=== PATIENT | male | born 1940 | race Hispanic/Latino ===

== ENCOUNTER 2017-12-06 05:49 | Emergency (ER) | payer MEDICARE, OTHER ==
[2017-12-06 06:07] VITALS: O2SAT 98
[2017-12-06] MEDS ORDERED: Lidocaine 1% w Epi 1:100,000 Inj ONE (06:16)
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
[2017-12-06] MEDS: Tdap Vaccine 0.5 ml Vial (10-64 yrs) IM ONE (07:27)
[2017-12-06] MEDS: ceFAZolin 1 GM in Sodium Chloride 0.9% 100 ML IVPB STA (07:28)
--- NOTE | 2017-12-06 07:35 | ED PDOC ---
- Laboratory Results Result Diagrams: 12/06/17 07:40 12/06/17 07:40 - ECG O2 Sat by Pulse Oximetry: 98 (RA) Pulse Ox Interpretation: Normal - Progress Re-evaluation Time: 11:00 Condition: Re-examined, Improved Medical Decision Making Medical Decision Making: Time: 7:00 Patient endorsed to me by Dr. Efraín Garcia at this time, pending CT and reevaluation. Time: 07:44 EXAM: CT Head Without Intravenous Contrast FINDINGS: Brain: Moderate atrophy. No intracranial hemorrhage. No mass. Minimal decreased attenuation within periventricular white matter. Probable chronic lacunar infarcts within basal ganglia. No edema. Ventricles: No hydrocephalus. Bones/joints: No calvarial fracture. Fracture anterior wall of left maxillary sinus. Fracture posterolateral wall of left maxillary sinus. Fracture floor of left orbit. Mild diastases of left zygomaticofrontal suture. Degenerative changes of RIGHT temporomandibular joint. Soft tissues: LEFT periorbital/maxillary/frontal soft tissue swelling. Several small radiopaque foreign bodies along left periorbital/frontal soft tissue swelling. Small amount of air about left maxillary sinus. Vasculature: Atherosclerotic disease of intracranial arteries. Sinuses: Scattered minimal to mild mucosal thickening. Minimal fluid within left maxillary sinus. Mastoid air cells: No mastoid effusion. Orbits: Minimal air within left orbit. IMPRESSION: 1. No intracranial hemorrhage. 2. Nonspecific white matter changes. 3. Facial fractures as above. 4. Incidental/non-acute findings are described above. 8:20 Patient complaining of nausea and pain. Will give IV Zofran and Morphine. Finger stick is elevated at 387. 9:09 Initiated IV fluids and 10 units Insulin IV. 1100 On reevaluation, patient appears improved and is feeling much better. Hyperglycemia is improved. Discussed findings w/ oromaxillofacial resident at [facility], Dr. Munoz ( working with Attending Dr. Lewis), who states patient does not require transfer for this particular injury and patient can follow up outpatient in the O[facility] clinic at [facility] tomorrow. Scribe Attestation: Documented by Sailaja Billings, acting as a scribe for Adrienne Trammell MD Provider Scribe Attestation: All medical record entries made by the Scribe were at my direction and personally dictated by me. I have reviewed the chart and agree that the record accurately reflects my personal performance of the history, physical exam, medical decision making, and the department course for this patient. I have also personally directed, reviewed, and agree with the discharge instructions and disposition. Disposition Doctor Will See Patient In The: Office Counseled Patient/Family Regarding: Studies Performed, Diagnosis, Need For Followup - Clinical Impression Clinical Impression: Hyperglycemia due to type 1 diabetes mellitus, Head injury, Orbital fracture, Laceration of face - POA Present On Arrival: Falls Or Trauma, Poor Glycemic Control - Disposition Referrals: [facility] [Outside] Disposition: Routine/Home Disposition Time: 11:32 Condition: GOOD Additional Instructions: Follow up with your oral maxillofacial clinic at [facility] tomorrow at 9 am. Follow up with your PCP in 5-7 days for suture removal. Prescriptions: Amoxicillin/Clavulanate [Augmentin 875 MG-125 MG] 1 tab PO BID #14 tab oxyCODONE/Acetaminophen [Percocet 5/325 mg Tab] 1 ea PO Q6 PRN #15 tab PRN Reason: Pain, Severe (8-10) Instructions: Laceration Repair, Skull and Facial Fractures, Closed Head Injury , Hyperglycemia, Adult (DC), Stitches
--- NOTE | 2017-12-06 07:44 | CT ---
EXAM: CT Head Without Intravenous Contrast CLINICAL HISTORY: 77 years old, male; Injury or trauma; Injury Head injury; Initial encounter; Blunt trauma (contusions or hematomas); Consciousness not specified TECHNIQUE: Axial computed tomography images of the head/brain without intravenous contrast. All CT scans at this facility use one or more dose reduction techniques, viz.: automated exposure control; ma/kV adjustment per patient size (including targeted exams where dose is matched to indication; i.e. head); or iterative reconstruction technique. Coronal and sagittal reformatted images were created and reviewed. COMPARISON: No relevant prior studies available. FINDINGS: Brain: Moderate atrophy. No intracranial hemorrhage. No mass. Minimal decreased attenuation within periventricular white matter. Probable chronic lacunar infarcts within basal ganglia. No edema. Ventricles: No hydrocephalus. Bones/joints: No calvarial fracture. Fracture anterior wall of left maxillary sinus. Fracture posterolateral wall of left maxillary sinus. Fracture floor of left orbit. Mild diastases of left zygomaticofrontal suture. Degenerative changes of RIGHT temporomandibular joint. Soft tissues: LEFT periorbital/maxillary/frontal soft tissue swelling. Several small radiopaque foreign bodies along left periorbital/frontal soft tissue swelling. Small amount of air about left maxillary sinus. Vasculature: Atherosclerotic disease of intracranial arteries. Sinuses: Scattered minimal to mild mucosal thickening. Minimal fluid within left maxillary sinus. Mastoid air cells: No mastoid effusion. Orbits: Minimal air within left orbit. IMPRESSION: 1. No intracranial hemorrhage. 2. Nonspecific white matter changes. 3. Facial fractures as above. 4. Incidental/non-acute findings are described above.
[2017-12-06] MEDS: Lidocaine/Epi 1% 1:100000 20 ML IJ ONE (07:57)
[2017-12-06 08:29] LABS: INR 1.1 (0.9-1.2); PARTIAL THROMBOPLASTIN TIME 31.1 Seconds (25.6-37.1); PROTHROMBIN TIME 11.8 Seconds (9.8-13.1)
[2017-12-06] MEDS: Morphine 4 MG/ML VIAL IVP ONE (08:29)
[2017-12-06 08:36] LABS: ALB/GLOB RATIO 1.4 (1.0-2.1); ALBUMIN 4.6 g/dL (3.5-5.0); ALT/SGPT 37 U/L (21-72); AST/SGOT 23 U/L (17-59); BLOOD UREA NITROGEN 24 mg/dl (9-20); CALCIUM 10.3 mg/dL (8.4-10.2); GFR AFRICAN-AMERICAN > 60; GFR NON-AFRICAN AMERICAN > 60
[2017-12-06 08:38] LABS: BASO # 0.1 K/uL (0.0-0.2); BASO % 0.3 % (0.0-2.0); HEMOGLOBIN 13.4 g/dL (12.0-18.0); LYMPH # 6.9 K/uL (1.0-4.3); LYMPH % 37.4 % (20.0-40.0); MEAN CELL VOLUME 85.4 fl (80.0-94.0); MEAN CORPUSCULAR HEMOGLOBIN 29.2 pg (27.0-31.0); MEAN CORPUSCULAR HGB CONC 34.2 g/dL (33.0-37.0); MEAN PLATELET VOLUME 8.8 fl (7.2-11.7); MONO # 0.6 K/uL (0.0-0.8); MONO % 3.3 % (0.0-10.0); NEUT # 10.9 K/uL (1.8-7.0); NRBC % 0.3 % (0.0-0.0); RBC 4.57 Mil/uL (4.40-5.90); WHITE BLOOD COUNT 18.5 K/uL (4.8-10.8)
[2017-12-06] MEDS: Sodium Chloride 0.9% 1,000 ML IV STA (09:15)
[2017-12-06] MEDS: Insulin Regular 100 units/ml IV STA (09:24)
[2017-12-06 09:26] VITALS: RESP 20
[2017-12-06 12:35] VITALS: BP 90/60; PULSE 100; TEMP 98.3
--- NOTE | 2017-12-07 07:34 | CARD ---
APPROVED REPORT EKG Measurement Heart [id number] <Conclusion> Sinus rhythm with 1st degree AV block Left axis deviation Right bundle branch block Inferior infarct, age undetermined Abnormal ECG
== END 2017-12-06 12:37 | disposition home or self-care (01) ==
LOC: H.ER 05:49
DX: S09.90XA Unspecified injury of head, initial encounter (principal); S02.19XA Other fracture of base of skull, initial encounter for closed fracture; W01.10XA Fall on same level from slipping, tripping and stumbling with subsequent striking against unspecified object, initial encounter; Y99.0 Civilian activity done for income or pay; E11.65 Type 2 diabetes mellitus with hyperglycemia; S01.81XA Laceration without foreign body of other part of head, initial encounter; I10 Essential (primary) hypertension; E05.90 Thyrotoxicosis, unspecified without thyrotoxic crisis or storm; Z79.4 Long term (current) use of insulin; Z79.82 Long term (current) use of aspirin; Z23 Encounter for immunization
CPT/HCPCS: 12013; 70450; 80053; 82948; 85025; 85610; 85730; 90471; 90715; 93005; 96361; 96365; 96375; 99285; J0690; J2270; J2405; J7040

== ENCOUNTER 2017-12-14 07:48 | Emergency (ER) | payer MEDICARE, OTHER ==
[2017-12-14 07:56] VITALS: BMI 27.4
[2017-12-14 07:58] VITALS: BP 172/78
[2017-12-14 08:10] VITALS: PULSE 76; RESP 20; TEMP 98; O2SAT 98
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
== END 2017-12-14 10:20 | disposition home or self-care (01) ==
LOC: H.ER 07:48
DX: Z48.02 Encounter for removal of sutures (principal)

== ENCOUNTER 2018-06-15 08:03 | Emergency (ER) | payer MEDICARE, OTHER ==
[2018-06-15 08:03] VITALS: BMI 27.4
[2018-06-15 08:19] VITALS: BP 117/76; PULSE 111; RESP 20; TEMP 98.1; O2SAT 95
--- NOTE | 2018-06-15 09:13 | ED PDOC ---
History of Present Illness History of Present Illness: 78 years old male with history of hypertension and diabetes presents to ER for evaluation of ongoing cough associated with exertional dyspnea for 2-3 weeks. Patient reports he was recently seen at [facility] starting on Augmentin and day 2 of antibiotics but cough is persisting. He states he is on insulin but not on ASI. Patient denies edema, chest pain, fever or any asthmatic history. PMD: Carlotta Patton I HPI: Influenza Time Seen by Provider: 06/15/18 08:16 Chief Complaint: Cough, Cold, Congestion Chief Complaint (Provider): Cough, Cold, Congestion History Per: Patient Exam Limitations: no limitations Onset/Duration Of Symptoms: Other (2-3 weeks) Symptoms include: cough. denies: fever Past Medical History Reviewed: Historical Data, Nursing Documentation, Vital Signs Vital Signs: Last Vital Signs Temp 98.1 F 06/15/18 08:09 Pulse 111 H 06/15/18 08:09 Resp 20 06/15/18 08:09 BP 117/76 06/15/18 08:09 Pulse Ox 95 06/15/18 08:09 - Medical History PMH: Diabetes, HTN, Hypercholesterolemia, Hyperthyroidism Denies: Chronic Kidney Disease - Surgical History Surgical History: No Surg Hx - Family History Family History: States: Unknown Family Hx - Social History Current smoker - smoking cessation education provided: No Alcohol: None Drugs: Denies - Immunization History Hx Tetanus Toxoid Vaccination: No Hx Influenza Vaccination: No Hx Pneumococcal Vaccination: No - Home Medications Home Medications: Ambulatory Orders Medication Instructions Recorded Amlodipine Besylate/Benazepril 1 cap PO TID 11/29/13 [Amlodipine Besylate and Benazepril Hydrochlor] Aspirin [Aspir-Low] 81 mg PO DAILY 11/29/13 GlipiZIDE [Glipizide] 5 mg PO TID 11/29/13 Hydralazine Hydrochloride 50 mg PO BID 11/29/13 [Hydralazine] Insulin Detemir [Levemir] 60 unit SC DAILY 11/29/13 RX: Amlodipine Besylate 10 mg PO DAILY 11/29/13 RX: Fenofibrate 160 mg PO DAILY 11/29/13 RX: Losartan Potassium 100 mg PO DAILY 11/29/13 Rosuvastatin Calcium [Crestor] 10 mg PO DAILY 11/29/13 Acetaminophen/Codeine Phosph 1 tab PO Q6 PRN #10 tab 12/22/13 [Acetaminophen and Codeine Phosphate 300 mg-30] Cyclobenzaprine HCl [Flexeril] 1 tab PO BID PRN #10 tab 12/22/13 Mupirocin 2% Ointment [Bactroban 1 appl TP BID #1 tube 05/14/15 Ointment] Amoxicillin/Clavulanate [Augmentin 1 tab PO BID #14 tab 12/06/17 875 MG-125 MG] oxyCODONE/Acetaminophen [Percocet 1 ea PO Q6 PRN #15 tab 12/06/17 5/325 mg Tab] - Allergies Allergies/Adverse Reactions: Allergies Allergy/AdvReac Type Severity Reaction Status Date / Time No Known Allergies Allergy Verified 06/15/18 08:17 Review of Systems ROS Statement: Except As Marked, All Systems Reviewed And Found Negative Constitutional: Negative for: Fever Cardiovascular: Negative for: Chest Pain, Edema Respiratory: Positive for: Cough (with dyspnea) Physical Exam - Reviewed Nursing Documentation Reviewed: Yes Vital Signs Reviewed: Yes - Physical Exam Appears: Positive for: Non-toxic, No Acute Distress Head Exam: Positive for: ATRAUMATIC, NORMOCEPHALIC Skin: Positive for: Normal Color, Warm, Dry Cardiovascular/Chest: Positive for: Regular Rate, Rhythm. Negative for: Murmur Respiratory: Positive for: Decreased Breath Sounds (bilaterally) Extremity: Positive for: Normal ROM. Negative for: Pedal Edema Neurologic/Psych: Positive for: Alert, Oriented (x3) Medical Decision Making Medical Decision Making: Time: 0850 --78 years old male with cough and exertional dyspnea. --EKG --Blood work --Chest X-Ray --Albuterol 3ml INH --Nebulizer labs reviewed mild elev BNP otherwise clinically unremarkable. Lungs improved on ausc after duoneb. patient appears well, ambulating around ED and wishes to go home. No hypoxia or tachycardia. Continue Abx as prior prescribed and followup PMD 2-3 days. DC paperwork given on downtime instructions Scribe Attestation: Documented by Celeste Tanner, acting as a scribe for Kiet Mckeon MD. Provider Scribe Attestation: All medical record entries made by the Scribe were at my direction and personally dictated by me. I have reviewed the chart and agree that the record accurately reflects my personal performance of the history, physical exam, medical decision making, and the department course for this patient. I have also personally directed, reviewed, and agree with the discharge instructions and disposition. - Laboratory Results Result Diagrams: 06/15/18 09:25 06/15/18 09:25 - ECG O2 Sat by Pulse Oximetry: 95 (RA) Pulse Ox Interpretation: Normal Disposition - Clinical Impression Clinical Impression: Bronchitis - Patient ED Disposition Is Patient to be Admitted: No - Disposition Disposition: Routine/Home Disposition Time: 10:30 Condition: STABLE Instructions: Acute Bronchitis Forms: [employer] (Italian) - POA Present On Arrival: None
[2018-06-15] MEDS ORDERED: Albuterol-Ipratrop 3 mg / 0.5 (3 ml) UD INH STA (09:35)
[2018-06-15 11:30] LABS: ALB/GLOB RATIO 1.3 (1.0-2.1); ALT/SGPT 30 U/L (21-72); AST/SGOT 31 U/L (17-59); BLOOD UREA NITROGEN 22 mg/dl (9-20); CALCIUM 9.5 mg/dL (8.4-10.2); GFR NON-AFRICAN AMERICAN > 60
[2018-06-15 11:41] LABS: B-TYPE NATRIURETIC PEPTIDE 2450 pg/ml (0-900)
[2018-06-15 12:05] LABS: BASO % 0.3 % (0.0-2.0); EOS # 0.2 K/uL (0.0-0.7); EOS % 1.5 % (0.0-4.0); HEMOGLOBIN 12.1 g/dL (12.0-18.0); LYMPH # 7.6 K/uL (1.0-4.3); LYMPH % 59.7 % (20.0-40.0); MEAN CELL VOLUME 86.8 fl (80.0-94.0); MEAN CORPUSCULAR HEMOGLOBIN 29.7 pg (27.0-31.0); MEAN CORPUSCULAR HGB CONC 34.2 g/dL (33.0-37.0); MEAN PLATELET VOLUME 8.6 fl (7.2-11.7); MONO # 0.5 K/uL (0.0-0.8); NEUT # 4.4 K/uL (1.8-7.0); NEUT % 34.5 % (50.0-75.0); NRBC % 0.3 % (0.0-0.0); RBC 4.07 Mil/uL (4.40-5.90); RED CELL DISTRIBUTION WIDTH 14.9 % (11.5-14.5); WHITE BLOOD COUNT 12.8 K/uL (4.8-10.8)
--- NOTE | 2018-06-15 14:05 | RAD ---
Date of service: 06/15/2018 HISTORY: Cough COMPARISON: No prior. TECHNIQUE: Chest PA and lateral FINDINGS: LUNGS: Increased prominence of the interstitial markings bilaterally, likely chronic, with superimposed pulmonary vascular congestion not excluded. PLEURA: No significant pleural effusion identified. No pneumothorax apparent. CARDIOVASCULAR: Atherosclerotic aortic calcifications. Cardiomediastinal silhouette enlarged OSSEOUS STRUCTURES: Right humeral head surgical tacks. Degenerative changes. VISUALIZED UPPER ABDOMEN: Right upper quadrant surgical clips. OTHER FINDINGS: None. IMPRESSION: Increased prominence of the interstitial markings bilaterally, likely chronic, with superimposed pulmonary vascular congestion not excluded.
--- NOTE | 2018-06-16 10:36 | CARD ---
APPROVED REPORT Date of service: 06/15/2018 <Conclusion> Sinus rhythm with 1st degree AV block Possible Left atrial enlargement Left axis deviation Right bundle branch block Inferior infarct, age undetermined Anterior infarct, age undetermined T wave abnormality, consider lateral ischemia Abnormal ECG
== END 2018-06-15 12:55 | disposition home or self-care (01) ==
LOC: H.ER 08:03
DX: J40 Bronchitis, not specified as acute or chronic (principal); E11.9 Type 2 diabetes mellitus without complications; I10 Essential (primary) hypertension; Z79.4 Long term (current) use of insulin; E05.90 Thyrotoxicosis, unspecified without thyrotoxic crisis or storm